=== PATIENT | male | born 1990 | race Caucasian/White ===

== ENCOUNTER → 2025-03-08 | Day surgery (SDC) | payer MEDICARE, OTHER, SELFPAY ==
[~2025-03-08] VITALS: Ht 175.3 cm; Wt 64.0 kg
[~2025-03-08] MED LIST: CLON-412 PO; CLONI1TA PO; KETAMINE HCL 200 MG/20 ML VIAL As Ordered ONE; LIDOCAINE 2% 100 MG/5 ML SDV (FOR ANES.) As Ordered ONE; METH10CO3 PO; METO1TAB32 PO; METO1TAB7 PO; MIDAZOLAM INJ 2 MG/2 ML VIAL As Ordered ONE; PERC5TAB12 PO; PERCOCET PO; SERO50TA PO
[2025-03-08] MEDS: LR 1,000 ML IV ONE (15:20)
[2025-03-08] MEDS: KETOROLAC 30 MG/ML 1 ML VIAL IV ONE (16:32)
[2025-03-08 16:35] VITALS: TEMP 98.2
[2025-03-08 16:55] VITALS: BP 132/84; O2SAT 99
== END | disposition home or self-care (01) ==
LOC: M ED 10:42 → M SDC 15:15
PROVIDERS: ATTEND Orthopaedic Surgery
DX: S52.502A Unspecified fracture of the lower end of left radius, initial encounter for closed fracture (principal); W17.89XA Other fall from one level to another, initial encounter; Y93.89 Activity, other specified; Y92.69 Other specified industrial and construction area as the place of occurrence of the external cause
CPT/HCPCS: 25605; 73200; 76000; 99284; J1885; J2250

== ENCOUNTER → 2025-03-13 | Outpatient (CLI) | payer MEDICARE ==
[~2025-03-13] MED LIST changes: -KETAMINE HCL 200 MG/20 ML VIAL As Ordered ONE; -LIDOCAINE 2% 100 MG/5 ML SDV (FOR ANES.) As Ordered ONE; -MIDAZOLAM INJ 2 MG/2 ML VIAL As Ordered ONE; -PERCOCET PO
== END ==
LOC: M SOG 06:55
PROVIDERS: ATTEND Orthopaedic Surgery Hand Surgery
DX: S52.572A Other intraarticular fracture of lower end of left radius, initial encounter for closed fracture (principal); S52.612A Displaced fracture of left ulna styloid process, initial encounter for closed fracture; X58.XXXA Exposure to other specified factors, initial encounter; Y92.9 Unspecified place or not applicable; Y93.9 Activity, unspecified; Y99.9 Unspecified external cause status

== ENCOUNTER 2025-03-19 11:43 | Day surgery (SDC) | payer MEDICARE, OTHER ==
[~2025-03-19] VITALS: Ht 175.3 cm; Wt 64.0 kg
[2025-03-19] MEDS ORDERED: LR 1,000 ML IV SCH ×2 (12:30→16:10)
[2025-03-19] MEDS ORDERED: ACETAMINOPHEN 1000MG/100ML IV BAG As Ordered ONE (14:02)
[2025-03-19] MEDS ORDERED: KETOROLAC 30 MG/ML 1 ML VIAL As Ordered ONE (14:02)
[2025-03-19] MEDS ORDERED: LIDOCAINE 2% 100 MG/5 ML SDV (FOR ANES.) As Ordered ONE (14:02)
[2025-03-19] MEDS: MIDAZOLAM INJ 2 MG/2 ML VIAL IV PRN (14:13)
[2025-03-19] MEDS: ROPIvacaine 0.5% 30ML VIAL PN ONE (14:15)
[2025-03-19] MEDS: dexAMETHasone 10 MG/1 ML VIAL PRES.FREE PN ONE (14:15)
[2025-03-19] MEDS: LIDOCAINE 1% SDV 5 ML VIAL PN ONE (14:15)
[2025-03-19] MEDS: ceFAZolin SOD 2 GM IV ONCE IV ONE (14:48)
[2025-03-19] MEDS ORDERED: dexAMETHasone 4 MG/ML 1 ML VIAL As Ordered ONE (15:12)
[2025-03-19] MEDS ORDERED: ONDANSETRON 4MG 2ML VIAL As Ordered ONE (15:12)
[2025-03-19] MEDS ORDERED: ONDANSETRON 4MG 2ML VIAL IV PRN (16:10)
[2025-03-19] MEDS ORDERED: HYDROMORPHONE HCL 0.5 MG/0.5 ML SYRINGE IV PRN (16:10)
[2025-03-19] MEDS ORDERED: PERCOCET PO (16:21)
[2025-03-19 16:53] VITALS: BP 116/56; TEMP 97.9; O2SAT 97
== END 2025-03-19 17:10 | disposition home or self-care (01) ==
LOC: M SDC 11:43
PROVIDERS: ATTEND Orthopaedic Surgery Hand Surgery
DX: S52.572A Other intraarticular fracture of lower end of left radius, initial encounter for closed fracture (principal); W11.XXXA Fall on and from ladder, initial encounter; Y93.89 Activity, other specified; Y92.9 Unspecified place or not applicable; F17.210 Nicotine dependence, cigarettes, uncomplicated; I10 Essential (primary) hypertension; Z79.899 Other long term (current) drug therapy
CPT/HCPCS: 25609; 73100; 76000; C1713; J0131; J0665; J0690; J1100; J1885; J2250; J2405; J2795; J3010

== ENCOUNTER → 2025-03-31 | Outpatient (CLI) | payer MEDICARE, OTHER ==
[~2025-03-31] MED LIST changes: +PERCOCET PO
== END ==
LOC: M SOG 07:56
PROVIDERS: ATTEND Physician Assistant
DX: S52.572A Other intraarticular fracture of lower end of left radius, initial encounter for closed fracture (principal); X58.XXXA Exposure to other specified factors, initial encounter; Y92.9 Unspecified place or not applicable; Y93.9 Activity, unspecified; Y99.9 Unspecified external cause status